=== PATIENT | female | born 1975 | race Caucasian/White ===

== ENCOUNTER 2021-06-29 17:01 | Emergency (ER) | payer BC, SELFPAY ==
[2021-06-29 17:10] VITALS: BP 155/91; PULSE 85; RESP 16; TEMP 36.7; O2SAT 100
--- NOTE | 2021-06-29 17:18 | ED.SKABFB ---
HPI - Skin/Abscess/Foreign Bdy General Chief complaint: Skin/Abscess/Foreign Body Stated complaint: bug bite on back Time Seen by Provider: 06/29/21 17:20 Source: patient and RN notes reviewed Mode of arrival: ambulatory Limitations: no limitations History of Present Illness HPI narrative: 46-year-old female presents to the [facility] with a red raised area on the upper back right side. Patient states that it has been there about 10 days, worse over the last 3. Unsure if it was a bug bite or a pimple. Denies any chest pain or abdominal pain. No fevers. MD complaint: abscess/boil Related Data Home Medications Medication Instructions Recorded Confirmed No Home Medications 06/29/21 06/29/21 Allergies Allergy/AdvReac Type Severity Reaction Status Date / Time azithromycin Allergy Hives Verified 06/29/21 17:19 Sulfa (Sulfonamide Allergy Hives Verified 06/29/21 17:19 Antibiotics) Review of Systems Review of Systems: All systems reviewed & are unremarkable except as noted in HPI and below Constitutional: Constitutional: Reports no additional constitutional complaints Eyes: Eyes: Reports no additional eye complaints ENT: Reports system reviewed and no additional complaints, except as documented Cardiovascular: Cardiovascular: Reports no additional cardiovascular complaints Respiratory: Respiratory: Reports no additional respiratory complaints Gastrointestinal: Gastrointestinal: Reports no additional gastrointestinal complaints Musculoskeletal: Musculoskeletal: Reports no additional musculoskeletal complaints Integumentary/Breasts: Skin/Breast: Reports as per HPI and Reports erythema (3 cm area right scapular area) Neurologic: Reports system reviewed and no additional complaints, except as documented Psychiatric: Psychiatric: Reports no additional psychiatric complaints Allergic/Immunologic: Allergic/Immunologic: Reports no additional allergic/immunologic complaints [facility] Past Medical History Medical History (Updated 07/01/21 @ 17:22 by Liana Win) No significant past medical history Surgical History Surgical History (Updated 07/01/21 @ 17:19 by Liana Win) No significant past surgical history Social History Social History (Updated 07/01/21 @ 17:20 by Liana Win) Living arrangements: with family Gender identity (if verbalized by the patient): Female Comments At the time of my signature, I reviewed and agree with the nursing past medical, surgical, social, and family history. There is no relevant family history pertinent to the patient complaint. Exam Const: General: healthy appearing, no acute distress and alert Nutritional Appearance: well nourished and obese Orientation/consciousness: patient oriented x3 Limitations: no limitations HENMT: Head: normal to inspection Eyes: Conjunctivae: conjunctivae normal Pupils: Equal, round and reactive pupils present Neck: Neck: normal visual inspection, no lymphadenopathy and no meningeal signs Chest: Chest palpation & inspection: normal inspection of the chest Resp: Effort & Inspection: normal respiratory effort and no use of accessory muscles Auscultation: clear to auscultation bilaterally, no crackles, no rales, no rhonchi and no wheezes Cardio: Rate: regular rate Rhythm: regular rhythm : General: Yes no CVA tenderness Back/Spine/Pelvis: Back: no CVA tenderness Skin: General skin exam: normal color Wounds: no wounds Hair: normal Full body images: 1. 3 cm red raised warm area with a fluctuant center Neuro: General: patient oriented x3, moves all extremities, no meningeal signs and no focal motor deficits Speech: normal speech Gait exam (Neuro): Normal gait present Extrem: General: normal to inspection Psych: Appearance: grossly normal and well kempt Mental Status: mental status grossly normal Affect: normal affect Attitude: cooperative Thought content: Yes Normal thought content present Course
[2021-06-29 17:20] VITALS: BP 155/91; PULSE 85; RESP 16; TEMP 36.7; O2SAT 100
== END 2021-06-29 17:47 | disposition home or self-care (01) ==
PROVIDERS: Emergency Provider Nurse Practitioner; PCP Internal Medicine
DX: L02.212 Cutaneous abscess of back [any part, except buttock and flank] (principal); J45.990 Exercise induced bronchospasm
CPT/HCPCS: 10060; 87070; 87205; 99213; G0463

== ENCOUNTER 2023-02-04 11:16 | Emergency (ER) | payer BC, SELFPAY ==
[2023-02-04 11:20] VITALS: BP 142/99; PULSE 85; RESP 20; TEMP 36.6; O2SAT 98
--- NOTE | 2023-02-04 11:24 | ED.URI ---
HPI - URI/Sore Throat General Chief Complaint: Upper Respiratory Infection Stated Complaint: sinus issues Time Seen by Provider: 02/04/23 11:24 Source: patient and RN notes reviewed Mode of arrival: ambulatory Limitations: no limitations History of Present Illness HPI Narrative: 48-year-old female presents with concern for 3 week history of sinus congestion, pressure, drainage. She reports facial pain and dental pain. She also reports cough and wheezing. She reports she has been taking Sudafed without resolution. She denies fever, aches, chills, sweats. MD elicited complaint: cough, nasal congestion and sinus pain Related Data Allergies Allergy/AdvReac Type Severity Reaction Status Date / Time azithromycin Allergy Hives Verified 06/29/21 17:19 Sulfa (Sulfonamide Allergy Hives Verified 06/29/21 17:19 Antibiotics) Review of Systems Review of Systems: CONSTITUTIONAL: Denies malaise, chills, sweats, or fever. EYES: Denies visual changes, redness, or discharge. ENT: Reports rhinorrhea, congestion, sinus pain, and sore throat. CARDIOVASCULAR: Denies chest pain, palpitations, or edema. RESPIRATORY: Reports cough. Denies dyspnea. GASTROINTESTINAL: Denies abdominal pain, nausea, vomiting, diarrhea SKIN: Denies rash or itching. MUSCULOSKELETAL: Denies myalgia. NEUROLOGIC: Denies headache. All systems reviewed & are unremarkable except as noted in HPI and below PMFSH Past Medical History Medical History (Updated 02/04/23 @ 11:31 by Liana Rinaldi NP) No significant past medical history Surgical History Surgical History (Updated 07/01/21 @ 17:19 by Liana Win APRN) No significant past surgical history Social History Social History (Updated 07/01/21 @ 17:20 by Liana Win APRN) Living arrangements: with family Gender identity (if verbalized by the patient): Female Comments At time of signature, agree with nursing past medical, surgical, social and family history. There is no relevant family history pertinent to the presenting complaint Exam Narrative: GENERAL: Well-appearing, well-nourished, and in no acute distress. HEAD: Normocephalic EYES: PERRLA, conjunctivae clear ENT: Nares clear, turbinates edematous and erythematous, sinus tenderness. Mucous membranes moist. TM pearly ann with dull light reflex bilaterally; no tragal tenderness. Oropharynx not erythematous without lesions. Tonsils not enlarged and without exudate, no drooling, no hoarseness, no trismus, uvula midline. NECK: Supple. No lymphadenopathy CHEST: Clear to auscultation, breath sounds equal. No wheezing, rhonchi, rales, or stridor. No respiratory distress, speaks in full sentences. Cough noted HEART: Regular rate and rhythm. No murmur heard. SKIN: Warm, dry, no rash. NEURO: Alert and oriented x3. PSYCH: Normal mood and affect Course Course Emergency Course: Patient is aware of diagnosis, understands and agrees to treatment plan. Anticipatory guidance given. Patient agrees to follow-up as directed and is aware of reasons to seek care at the emergency department. Portions of this record may have been created with voice recognition software Level of Care: Express Care Visit Vital Signs Vital signs: Vital Signs Temperature 97.9 F 02/04/23 11:20 Pulse Rate 85 02/04/23 11:20 Respiratory Rate 20 02/04/23 11:20 Blood Pressure 142/99 H 02/04/23 11:20 Pulse Oximetry 98 02/04/23 11:20 Oxygen Delivery Room Air 02/04/23 11:20 Temperature 97.9 F 02/04/23 11:20 Pulse Rate 85 02/04/23 11:20 Respiratory Rate 20 02/04/23 11:20 Blood Pressure 142/99 H 02/04/23 11:20 Pulse Oximetry 98 02/04/23 11:20 Oxygen Delivery Room Air 02/04/23 11:20 Reviewed. MDM - URI/Sore Throat MDM Narrative Medical decision making narrative: Differential diagnosis considered: Fiore virus, strep pharyngitis, allergic rhinitis, upper respiratory tract infection, sinusitis, rhinosinusitis, nasopharyngiti
== END 2023-02-04 11:38 | disposition home or self-care (01) ==
PROVIDERS: Emergency Provider Nurse Practitioner; PCP Internal Medicine
DX: J32.9 Chronic sinusitis, unspecified (principal); J40 Bronchitis, not specified as acute or chronic
CPT/HCPCS: 99213; G0463

== ENCOUNTER 2024-03-09 01:42 | Day surgery (SDC) | payer BC, SELFPAY ==
[2024-03-04 09:49] VITALS: BMI 39.6
--- NOTE | 2024-03-04 09:55 | PC.NURSE ---
Report to the Outpatient Waiting Room, entrance under the green pavilion located off [facility], at time _0830_ on date _[id number]_. Planned Procedure Time: _1030_. Time changes happen often and if your time is changed the preop area will call you the afternoon before. - You and your visitor will be asked to self-screen and do not enter if you have any COVID symptoms. - A mask is optional within the hospital at this time. Patients may have clear liquids (water, carbonated beverages, clear teas, apple juice) until 3 hours prior to surgery with a maximum of 20 ounces. - No food from midnight until time of surgery Take the following medications with a SIP of water the morning of surgery: ___Flonase DO NOT STOP ANY OF YOUR OTHER PRESCRIPTION MEDICATIONS PRIOR TO SURGERY ?EXCEPT THE FOLLOWING Medications to discontinue per physician None Date to take last dose Please no make-up, nail yoruba, hairspray, perfume, deodorant, or body powder the day of surgery. No jewelry (including any body piercings) or valuables the day of surgery, leave them at home. Please take a shower or bath the night before, or the morning of, surgery with an antibacterial soap. Wear comfortable, loose fitting clothing. - Jewelry must be removed prior to entering the operating room. Rings and piercings that are not removed may be cut off. - The hospital will not accept responsibility for valuables. - Please leave all valuables, including medications, at home the day of surgery. If you are going home after surgery, a licensed tractor trailer driver must drive you home. - NO public transportation without another adult if you receive anesthesia. - We recommend that an adult stay with you for 24 hours following discharge. - We also recommend that you do not drive, make important decision, drink alcoholic beverages, or take any drugs that were not prescribed by your health care provider for at least 24 hours after your discharge time. Follow any additional instructions given to you from your surgeon. If you or anyone in your household have experienced Covid symptoms in the past week, please notify your surgeon or the nurse liaison at the phone number below for possible testing. Telephone instructions given to _Bo__and asked if any additional questions and then verbalized understanding. Patient advised to call surgeon office or pre surgery nurse liaison [phone] if any additional questions.
--- NOTE | 2024-03-09 07:35 | WPDHPUPDATE1 ---
History and Physical Update Update Date/Time: 03/09/24 07:35 History and Physical has been reviewed, including an updated exam of the patient. There are NO changes in the patient's condition. Risks, benefits, and alternatives have been discussed and questions answered. Patient agrees to proceed with procedure.
--- NOTE | 2024-03-09 07:35 | PM.HPGS ---
History of Present Illness History of Present Illness Consent: Risks, benefits, and alternatives have been discussed and questions answered. Patient agrees to proceed with procedure. Chief complaint: Menorrhagia Narrative: Bo Avalos is a 49 year old female with menorrhagia. Pelvic ultrasound was normal. It was recommended to undergo D&C hysteroscopy for further evaluation. Risks of infection, bleeding, and perforation are reviewed. Possible pathology was discussed. Patient voices understanding and agrees to proceed. Review of Systems Review of Systems: not repeated day of surgery; patient states no changes in status [facility] Past Medical History Medical History (Updated 03/09/24 @ 07:38 by Heather Floyd MD) Anxiety Asthma Surgical History Surgical History (Updated 03/09/24 @ 07:37 by Heather Floyd MD) History of tonsillectomy Social History Social History (Updated 07/01/21 @ 17:20 by Liana Win APRN) Smoking status: Never smoker Alcohol intake: current Drinks per week: 6 Living arrangements: with family Gender identity (if verbalized by the patient): Female Spiritual care concerns: No Meds Home Medications and Allergies Home Medications Medication Instructions Recorded Confirmed Type cetirizine 10 mg tablet (Zyrtec) 10 mg PO DAILY 03/04/24 03/04/24 History cyclobenzaprine 10 mg tablet 10 mg PO HS 03/04/24 03/04/24 History fluticasone propionate 50 2 spray intranasal DAILY 03/04/24 03/04/24 History mcg/actuation nasal spray,suspension golimumab 12.5 mg/mL intravenous 100 mg IV ONCE 03/04/24 03/04/24 History solution (Simponi ARIA) Allergies Allergy/AdvReac Type Severity Reaction Status Date / Time azithromycin Allergy Hives Verified 03/04/24 09:44 Sulfa (Sulfonamide Allergy Hives Verified 03/04/24 09:44 Antibiotics) Exam Const: General: healthy appearing and alert Orientation/consciousness: patient oriented x3 Resp: Effort & Inspection: normal respiratory effort GI: GI Palp: Yes Soft to palpation, No Tenderness to palpation present (GI) and No Palpable mass present : External Female Exam: normal external appearance Speculum Exam - Vagina: normal appearance of the vagina and normal vaginal discharge Speculum Exam - Cervix: normal appearance of the cervix Bimanual exam- vagina & uterus: uterine size normal and consistency normal Bimanual Exam- Adnexa, other: normal adnexae and No adnexal tenderness Neuro: General: patient oriented x3 Assessment and Plan Assessment and plan (1) Menorrhagia: Code(s): N92.0 - Excessive and frequent menstruation with regular cycle Status: Acute Assessment and Plan: plan to proceed with D&C hysteroscopy
[2024-03-09 08:50] VITALS: BP 147/91; PULSE 76; RESP 20; TEMP 36.4; O2SAT 100
[2024-03-09] MEDS: ACETAMINOPHEN 500 MG TABLET 1000 MG PO (09:03)
[2024-03-09] MEDS: LACTATED RINGERS 1,000 ML 30 ML IV CONT (09:10)
--- NOTE | 2024-03-09 09:47 | P.PNAN_ITS ---
Anes - Initial Pre Proc Eval Procedure: Operation Date: 03/09/24 10:30 Proposed Procedures p Hysteroscopy Dilation and Curettage - Heather Floyd MD Date/Time: 03/09/24 09:47 Surgeon: Heather Floyd MD Pre Op Diagnosis: Menorrhagia Patient Data Age: 49 Gender: F Height: 1.73 m Weight: 118.3 kg Last Vital Signs Temp 36.4 C 03/09/24 08:50 Pulse 76 03/09/24 08:50 Resp 20 03/09/24 08:50 BP 147/91 H 03/09/24 08:50 Pulse Ox 100 03/09/24 08:50 O2 Del Method Room Air 03/09/24 08:50 Allergies Allergy/AdvReac Type Severity Reaction Status Date / Time azithromycin Allergy Hives Verified 03/09/24 09:01 soy Allergy Rash Verified 03/09/24 09:02 Sulfa (Sulfonamide Allergy Hives Verified 03/09/24 09:01 Antibiotics) Home Medications Medication Instructions Recorded Confirmed Type cetirizine 10 mg tablet (Zyrtec) 10 mg PO DAILY 03/04/24 03/09/24 History cyclobenzaprine 10 mg tablet 10 mg PO HS 03/04/24 03/09/24 History fluticasone propionate 50 2 spray intranasal DAILY 03/04/24 03/09/24 History mcg/actuation nasal spray,suspension golimumab 12.5 mg/mL intravenous 100 mg IV ONCE 03/04/24 03/09/24 History solution (Simponi ARIA) Patient hx anesthesia problems: none Family hx anesthesia problems: other (mother bronchospasm) Results Review: All pre-operative results and documents have been reviewed as part of the pre- operative evaluation. [facility] Past Medical History Medical History Anxiety Asthma Surgical History Surgical History History of tonsillectomy Social History Social History Smoking status: Never smoker Alcohol intake: current Drinks per week: 6 Living arrangements: with family Gender identity (if verbalized by the patient): Female Spiritual care concerns: No Anes - Eval Final PreProcedure Day of Procedure 03/09/24 09:47 Patient weight: morbidly obese Heart: regular rate and rhythm Lungs: clear to auscultation Airway: Mallampati scale class II Neurological: alert and oriented Last oral intake: >/= 8 hours ASA classification: III Emergent: no Anesthesia type and monitoring: general GIVS and standard monitoring Results Review: All pre-operative results and documents have been reviewed as part of the pre- operative evaluation. Informed Consent: The patient's anesthetic plan and its attendant risks and benefits were discussed with the patient/family/POA. Questions were solicited and answers provided to the satisfaction of the patient/family/POA.
[2024-03-09] MEDS: KETOROLAC 15 MG/ML VIAL (*BKC) IV PUSH (10:32)
--- NOTE | 2024-03-09 10:34 | W.PM.PROC2 ---
Procedure Note - Detailed Date of Procedure 03/09/24 Pre-op Diagnosis Menorrhagia Post-op Diagnosis Same Procedure Performed D&C hysteroscopy Surgeon Heather Floyd MD Anesthesia MAC Findings cervix is severely stenotic; endometrium appears grossly; uterus sounds to 9cm Description of Procedure The patient is taken to the operating room placed under anesthesia in the dorsal lithotomy position the long Graves speculum was placed for visualization of the cervix as it is very deep set. The cervix is grasped on the anterior lip with a tenaculum. The uterus is attempted to be sounded but internal cervical stenosis is encountered. The small dilator is not able to pass the internal os. The os finders are utilized and still unable to enter. The hysteroscope was used to attempt to hydrodissection and the internal os is not visible. The sound, dilators, os finders, and hysteroscope are used in series x3 without success. The decision was made to use the sharp curette and curette the endocervix and during this process the internal os was able to be passed. The curette was removed immediately and the hysteroscope placed and intracavitary placement is confirmed. With no abnormalities noted the hysteroscope was removed and the sharp curette replaced and used to fully curette the endometrium. The uterus was then sounded to 9cm. Instruments are removed. Sponge, needle, and instrument counts are correct per the OR staff. Patient was awakened from anesthesia and taken to recovery in stable condition. Estimated Blood Loss 5 Drains No Packing No Pathology Yes ( Endometrial and endocervical curettings) Complications No immediate complications Condition Stable Disposition PACU
[2024-03-09 10:38] VITALS: BP 159/103; PULSE 72; RESP 16; O2SAT 100
[2024-03-09 11:00] VITALS: BP 163/111; PULSE 69; RESP 16; O2SAT 100
[2024-03-09] MEDS: oxyCODONE HCL (*CRX) 5 MG TAB IR PO (11:01)
--- NOTE | 2024-03-09 11:08 | SUR.PHASEII ---
DR. CORNEJO NOTIFIED RE: [facility] WHO INSTRUCTED TO HAVE PATIENT FOLLOW UP WITH PRIMARY.
[2024-03-09 11:09] VITALS: BP 170/106; PULSE 56; RESP 16
== END 2024-03-09 11:21 | disposition home or self-care (01) ==
PROVIDERS: PCP Internal Medicine; Visit Provider Obstetrics & Gynecology Gynecology
PROC: 0U5B8ZZ Destruction of Endometrium, Via Natural or Artificial Opening Endoscopic (ICD-10-PCS; CPT 58563; principal; 2024-03-09 10:30)
DX: N92.0 Excessive and frequent menstruation with regular cycle (principal); Z79.620 Long term (current) use of immunosuppressive biologic; E66.01 Morbid (severe) obesity due to excess calories; Z68.39 Body mass index [BMI] 39.0-39.9, adult
CPT/HCPCS: 58558; 88305; A9270; J1885; J2250; J2405; J2704; J3010; J7120